=== PATIENT | male | born 1950 | race African-American/Black ===

== ENCOUNTER 2023-03-30 12:24 | Outpatient (REF) | payer MEDICAID, SELFPAY ==
[2023-03-30 13:20] LABS: MANUAL DIFF FLAG NO
[2023-03-30 13:27] LABS: Basophils Percent Auto 0.3 % (0-2); Eosinophils Absolute Auto 0.1 X10*3/uL (0.0-0.4); Eosinophils Percent Auto 0.6 % (0-4); Hematocrit 44.7 % (42.0-52.0); Hemoglobin 15.9 g/dl (14.0-18.0); Imm Gran Abs Auto 0.04 X10*3/uL (0.00-0.03); Imm Gran Pct Auto 0.4 % (0.0-0.4); Lymphocytes Absolute Auto 1.7 X10*3/uL (1.2-4.9); Lymphocytes Percent Auto 18.4 % (20-40); Mean Corpuscular HGB Conc 35.6 g/dl (31.0-36.0); Mean Corpuscular Hemoglobin 33.5 pg (27.0-33.0); Mean Corpuscular Volume 94.3 fL (80.0-98.0); Mean Platelet Volume 10.1 fL (9.4-12.4); Monocytes Absolute Auto 0.7 X10*3/uL (0.1-1.2); Monocytes Percent Auto 7.6 % (2-11); Neutrophils Absolute Auto 6.5 x10*3/uL (2.0-8.3); Neutrophils Percent Auto 72.7 % (45-73); Platelet Count 238 X10*3/uL (160-400); Red Blood Count 4.74 X10*6/uL (4.60-5.80); Red Cell Distribution Width 12.7 % (11.0-16.0)
[2023-03-30 14:17] LABS: Alanine Aminotransferase 8 U/L (0-40); Albumin Level 4.2 g/dL (3.5-5.0); Alkaline Phosphatase 67 U/L (39-117); Anion Gap 12 (12-20); Aspartate Amino Transferase 19 U/L (5-37); Bilirubin Total 1.4 mg/dL (0.0-1.0); Blood Urea Nitrogen 9 mg/dL (9-16); Calcium 9.9 mg/dL (8.4-10.2); Carbon Dioxide 32 mmol/L (22-29); Chloride 97 mmol/L (96-108); Estimated Glomerular Filt Rate > 60; Glucose Random 89 mg/dL (60-115); Potassium 3.3 mmol/L (3.3-5.1); Sodium 138 mmol/L (135-145); Total Protein 8.4 g/dL (6.5-8.0)
[2023-03-30 14:25] LABS: Estimated Average Glucose 100 mg/dL; Hemoglobin A1C 134.3202 umol/L; Hemoglobin A1c % 5.1 % (<6.0)
[2023-04-02 09:17] LABS: Absolute CD3 Count 1092 cells/uL (840-3060); Absolute CD4 Count 620 cells/uL (490-1740); Absolute CD8 Count 473 cells/uL (180-1170); Absolute Lymphocytes 1641 cells/uL (850-3900); CD4 CD8 Ratio 1.31 (0.86-5.00); Percent CD3 Cells 67 % (57-85); Percent CD4 Cells 38 % (30-61); Percent CD8 Cells 29 % (12-42)
[2023-04-03 14:04] LABS: HIV RNA PCR Qn Copies <20 DETECTED copies/mL (NOT DETECTED); HIV RNA PCR Qn Log Copies <1.30 DETECTED (NOT DETECTED)
[2023-04-07 06:13] LABS: VITAMIN D (1,25 OH) D3 56 pg/mL; Vit D (1,25-Dihydroxy) Total 56 pg/mL (18-72); Vitamin D (1,25 OH) D2 <8 pg/mL
== END 2023-03-30 12:25 | disposition home or self-care (01) ==
LOC: HO.HHCL 12:24
PROVIDERS: Visit Provider Family Medicine
DX: Z21 Asymptomatic human immunodeficiency virus [HIV] infection status (principal)
CPT/HCPCS: 36415; 80053; 82652; 83036; 85025; 86359; 86360; 87536

== ENCOUNTER 2023-06-07 08:59 | Outpatient (REF) | payer MEDICAID, SELFPAY ==
--- NOTE | ~2023-06-07 | XR_ITS ---
EXAMINATION: XR LUMBOSACRAL SPINE WITH OBLIQUES CLINICAL INFORMATION: ACUTE RIGHT SIDE LOWER BACK PAIN WITH RIGHT SIDED SCIATICA,NEW ONSET RIGHT LBP WITH RIGHT RADICULOPATHY COMPARISON: None available. TECHNIQUE: AP, both oblique, and lateral views of the lumbar spine. Lateral view of the lumbosacral junction. FINDINGS: Degenerative changes are present in the spine with disc space narrowing predominantly at L4-L5 with associated endplate sclerosis and osteophyte formation. There is mild narrowing seen as well at L1-L2. At other levels, there are endplate changes with osteophytes. No fractures or subluxations are seen. Facet joints are unremarkable. No fractures or subluxations. No bony destructive lesions. Incidental note made of vascular calcification XR/XR lumbar spine 4V min IMPRESSION: Degenerative changes most marked at L4-L5.
== END 2023-06-07 09:00 | disposition home or self-care (01) ==
LOC: HO.HHCX 08:59
PROVIDERS: Visit Provider Emergency Medicine
DX: M54.41 Lumbago with sciatica, right side (principal)
CPT/HCPCS: 72110

== ENCOUNTER 2023-06-12 10:07 | Outpatient (REF) | payer MEDICAID, SELFPAY | END 2023-06-12 10:08 | disposition home or self-care (01) | LOC: HO.HOSX 10:07 | PROVIDERS: Visit Provider Orthopaedic Surgery | DX: Z13.89 Encounter for screening for other disorder (principal) ==

== ENCOUNTER 2023-09-13 14:21 | Outpatient (REF) | payer MEDICAID, SELFPAY ==
[2023-09-13 16:00] LABS: MANUAL DIFF FLAG NO
[2023-09-13 16:15] LABS: Basophils Percent Auto 0.5 % (0-2); Eosinophils Percent Auto 0.3 % (0-4); Hematocrit 40.7 % (42.0-52.0); Hemoglobin 14.3 g/dl (14.0-18.0); Imm Gran Abs Auto 0.01 X10*3/uL (0.00-0.03); Imm Gran Pct Auto 0.2 % (0.0-0.4); Lymphocytes Absolute Auto 1.5 X10*3/uL (1.2-4.9); Lymphocytes Percent Auto 25.4 % (20-40); Mean Corpuscular HGB Conc 35.1 g/dl (31.0-36.0); Mean Corpuscular Hemoglobin 32.8 pg (27.0-33.0); Mean Corpuscular Volume 93.3 fL (80.0-98.0); Mean Platelet Volume 10.8 fL (9.4-12.4); Monocytes Absolute Auto 0.6 X10*3/uL (0.1-1.2); Monocytes Percent Auto 10.1 % (2-11); Neutrophils Absolute Auto 3.7 x10*3/uL (2.0-8.3); Neutrophils Percent Auto 63.5 % (45-73); Platelet Count 188 X10*3/uL (160-400); Red Blood Count 4.36 X10*6/uL (4.60-5.80); Red Cell Distribution Width 12.6 % (11.0-16.0); White Blood Count 5.8 X10*3/uL (4.8-10.8)
[2023-09-13 16:31] LABS: Alanine Aminotransferase 13 U/L (0-40); Albumin Level 4.2 g/dL (3.5-5.0); Alkaline Phosphatase 52 U/L (39-117); Anion Gap 15 (12-20); Aspartate Amino Transferase 21 U/L (5-37); Bilirubin Total 1.1 mg/dL (0.0-1.0); Blood Urea Nitrogen 31 mg/dL (9-16); Calcium 9.4 mg/dL (8.4-10.2); Carbon Dioxide 24 mmol/L (22-29); Chloride 99 mmol/L (96-108); Cholesterol 113 mg/dL (<200); Estimated Glomerular Filt Rate 44; Glucose Random 92 mg/dL (60-115); HDL Cholesterol 49 mg/dL (>40); LDL Cholesterol Calculated 54 mg/dL (<100); Potassium 3.6 mmol/L (3.3-5.1); Sodium 134 mmol/L (135-145); Triglycerides 52 mg/dL (<150)
[2023-09-13 16:45] LABS: Reflex LDLD? No
[2023-09-14 08:14] LABS: Syphilis Screen Nonreactive (Nonreactive)
[2023-09-14 14:19] LABS: Absolute CD3 Count 1225 cells/uL (840-3060); Absolute CD4 Count 729 cells/uL (490-1740); Absolute CD8 Count 487 cells/uL (180-1170); Absolute Lymphocytes 1598 cells/uL (850-3900); Percent CD3 Cells 77 % (57-85); Percent CD4 Cells 46 % (30-61); Percent CD8 Cells 30 % (12-42)
[2023-09-14 18:53] LABS: HIV RNA PCR Qn Copies 34 copies/mL (NOT DETECTED); HIV RNA PCR Qn Log Copies 1.53 (NOT DETECTED)
[2023-09-16 17:09] LABS: TS Negative Control Passed; TS Panel A 0; TS Panel B 0; TS Positive Control Passed; TSpotTB Negative (Negative)
[2023-09-18 16:14] LABS: Hepatitis C Genotype Not Detected
== END 2023-09-13 14:22 | disposition home or self-care (01) ==
LOC: HO.HHCL 14:21
PROVIDERS: Visit Provider Student in an Organized Health Care Education/Training Program
DX: B20 Human immunodeficiency virus [HIV] disease (principal)
CPT/HCPCS: 36415; 80053; 80061; 85025; 86359; 86360; 86481; 86780; 87536; 87902

== ENCOUNTER 2023-11-21 09:53 | Emergency (ER) | payer MEDICAID, SELFPAY ==
--- NOTE | ~2023-11-21 | XR_ITS ---
EXAMINATION: XR HUMERUS, LEFT CLINICAL INFORMATION: Left arm pain COMPARISON: None available. TECHNIQUE: AP and lateral views of the left humerus. FINDINGS: The bones are normal. No fracture. Imaged portions of the shoulder and elbow are unremarkable. XR/XR humerus LT IMPRESSION: Normal left humerus.
--- NOTE | ~2023-11-21 | XR_ITS ---
EXAMINATION: XR FEMUR, LEFT CLINICAL INFORMATION: Left leg pain COMPARISON: None available. TECHNIQUE: AP and lateral views of the left femur were obtained. FINDINGS: No acute fractures. Status post left knee total arthroplasty. No evidence of hardware complications. Joint spaces are well-maintained. Atherosclerotic calcifications seen within the arterial vessels. No joint effusion XR/XR femur LT 2V IMPRESSION: No acute osseous process
--- NOTE | ~2023-11-21 | XR_ITS ---
EXAMINATION: XR TIBIA AND FIBULA, LEFT CLINICAL INFORMATION: Left flank pain COMPARISON: None available. TECHNIQUE: AP and lateral views of the left tibia and fibula were obtained. FINDINGS: Status post left knee total arthroplasty. No evidence of hardware complications. No fracture. No osseous lesions. Soft tissues are unremarkable XR/XR tibia fibula LT 2V IMPRESSION: No acute process
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
--- NOTE | ~2023-11-21 | XR_ITS ---
EXAMINATION: XR FOREARM, LEFT CLINICAL INFORMATION: Left arm pain COMPARISON: None available. TECHNIQUE: AP and lateral views of the left forearm were obtained. FINDINGS: The bones and soft tissues are normal. No fracture. Imaged portions of the elbow and wrist are unremarkable. XR/XR forearm LT 2V IMPRESSION: Normal left forearm.
--- NOTE | ~2023-11-21 | CT_ITS ---
EXAMINATION: CT CHEST, ABDOMEN, AND PELVIS WITH CONTRAST CLINICAL INFORMATION: COMPARISON: None TECHNIQUE: Multidetector volumetric CT imaging of the chest, abdomen, and pelvis was obtained after the administration of 100 mL of Omnipaque 300 intravenous contrast without immediate adverse reactions. Axial MIP volume rendering provided. Sagittal and coronal reformatted images were obtained. This CT examination was performed using dose optimization techniques as appropriate, variously including the following: *Automated exposure control *Adjustment of mA and/or kV according to patient size (this includes techniques or standardized protocols for targeted exams where dose is matched to indication/reason for exam; i.e. extremities or head) *Use of iterative reconstruction technique DLP: 228.99 mGy-cm for chest and 464.69 mGy-cm for abdomen and pelvis. FINDINGS: LUNGS: The lungs are clear with no evidence of inflammation or nodules. MEDIASTINUM: The mediastinum appears unremarkable. CORONARY ARTERY CALCIFICATION: Not seen PLEURA: There is no pleural effusion. No pleural mass or thickening. AXILLA: No lymphadenopathy by size criteria. LIVER, GALLBLADDER, AND BILIARY TREE: The liver appears unremarkable in size, shape, and attenuation. No focal hepatic lesion or biliary ductal dilatation is appreciated. Unremarkable appearance of the gallbladder. PANCREAS: Unremarkable SPLEEN: Unremarkable ADRENAL GLANDS: Unremarkable KIDNEYS AND URETERS: Small cortical cysts seen through the left kidney and there is 2.4 x 2.9 cm low-attenuation mass in the lower pole of left kidney, unclear if it solid mass versus hemorrhagic cyst. Correlate with renal ultrasound. Right kidney is unremarkable except of tiny cortical cysts. BLADDER: Unremarkable GASTROINTESTINAL TRACT: There is small hiatal hernia. Bowel loops are normal appendix is unremarkable. There is no colitis or diverticulitis seen. Moderate amount of retained feces consistent with constipation. ABDOMINAL WALL: No significant hernia is appreciated. LYMPH NODES: No evidence of adenopathy by size criteria. VASCULAR: Unremarkable. PELVIC VISCERA: Unremarkable OSSEOUS STRUCTURES: There are degenerative changes in lower lumbar spine but no fractures identified. CT/CT abdomen pelvis w IV con IMPRESSION: 1. No evidence of abnormalities in the chest, abdomen or pelvis. 2. Left renal mass, correlate with ultrasound. 3. Small hiatal hernia. 4. Constipation. 5. Degenerative changes in lower lumbar spine.
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
[2023-11-21 10:05] VITALS: BP 139/81; PULSE 56; RESP 14; TEMP 36.7; O2SAT 99
[2023-11-21 10:11] VITALS: BP 128/82; PULSE 56; O2SAT 100
[2023-11-21 10:24] LABS: MANUAL DIFF FLAG NO
[2023-11-21 10:25] LABS: Basophils Percent Auto 0.4 % (0-2); Eosinophils Absolute Auto 0.1 X10*3/uL (0.0-0.4); Eosinophils Percent Auto 0.9 % (0-4); Hematocrit 39.1 % (42.0-52.0); Hemoglobin 13.4 g/dl (14.0-18.0); Imm Gran Abs Auto 0.02 X10*3/uL (0.00-0.03); Imm Gran Pct Auto 0.4 % (0.0-0.4); Lymphocytes Absolute Auto 1.3 X10*3/uL (1.2-4.9); Lymphocytes Percent Auto 23.8 % (20-40); Mean Corpuscular HGB Conc 34.3 g/dl (31.0-36.0); Mean Corpuscular Hemoglobin 32.6 pg (27.0-33.0); Mean Corpuscular Volume 95.1 fL (80.0-98.0); Mean Platelet Volume 9.3 fL (9.4-12.4); Monocytes Absolute Auto 0.6 X10*3/uL (0.1-1.2); Monocytes Percent Auto 9.8 % (2-11); Neutrophils Absolute Auto 3.7 x10*3/uL (2.0-8.3); Neutrophils Percent Auto 64.7 % (45-73); Platelet Count 211 X10*3/uL (160-400); Red Blood Count 4.11 X10*6/uL (4.60-5.80); Red Cell Distribution Width 13.2 % (11.0-16.0); White Blood Count 5.6 X10*3/uL (4.8-10.8)
[2023-11-21 10:27] LABS: Appearance Urine Clear; Color Urine Yellow; Glucose Urine UA Negative (Negative); Leukocyte Esterase Urine Negative (Negative); Nitrite Urine Negative (Negative); Specific Gravity - Urine 1.015 (1.005-1.025); Urine Blood Negative (Negative); Urine Ketones Negative (Negative); Urine Protein Negative (Neg-Trace)
[2023-11-21 10:41] LABS: Prothrombin Time 12.4 SEC (11.1-13.3)
[2023-11-21 10:44] LABS: Alanine Aminotransferase 11 U/L (0-40); Albumin Level 3.8 g/dL (3.5-5.0); Alkaline Phosphatase 53 U/L (39-117); Anion Gap 6 (12-20); Aspartate Amino Transferase 20 U/L (5-37); Bilirubin Total 0.5 mg/dL (0.0-1.0); Blood Urea Nitrogen 7 mg/dL (9-16); Calcium 8.9 mg/dL (8.4-10.2); Carbon Dioxide 30 mmol/L (22-29); Chloride 107 mmol/L (96-108); Estimated Glomerular Filt Rate > 60; Glucose Random 88 mg/dL (60-115); Magnesium 2.1 mg/dL (1.6-2.6); Potassium 4.4 mmol/L (3.3-5.1); Sodium 139 mmol/L (135-145); Total Protein 7.3 g/dL (6.5-8.0)
[2023-11-21 10:54] VITALS: BP 139/81; PULSE 56; RESP 14; TEMP 36.7; O2SAT 99; BMI 21.3
[2023-11-21] MEDS: Ketorolac Tromethamine 30 MG/ML VIAL IM (11:13)
[2023-11-21] MEDS: iohexoL 350 MG/ML 100 ML INFUS..BTL IV (11:34)
--- NOTE | 2023-11-21 11:51 | PC.NURSE ---
20G PIV placed R forearm, medicated per OCT - provider verbal requested toradol IV initially ordered IM. pt to CT scan. pending CT/XR results.
[2023-11-21 13:01] VITALS: BP 139/81; PULSE 56; RESP 14; TEMP 36.7; O2SAT 99
--- NOTE | 2023-11-21 13:03 | PC.NURSE ---
AMA paperwork reviewed and signed.
== END 2023-11-21 13:03 | disposition home or self-care (01) ==
PROVIDERS: Physician Assistant; Emergency Provider Emergency Medicine
DX: S89.92XA Unspecified injury of left lower leg, initial encounter (principal); S09.90XA Unspecified injury of head, initial encounter; S39.93XA Unspecified injury of pelvis, initial encounter; S49.92XA Unspecified injury of left shoulder and upper arm, initial encounter; R51.9 Headache, unspecified; M54.2 Cervicalgia; M54.6 Pain in thoracic spine; M79.602 Pain in left arm; V03.90XA Pedestrian on foot injured in collision with car, pick-up truck or van, unspecified whether traffic or nontraffic accident, initial encounter; Y93.9 Activity, unspecified; Y92.410 Unspecified street and highway as the place of occurrence of the external cause; Y99.8 Other external cause status; Z79.899 Other long term (current) drug therapy
CPT/HCPCS: 36415; 70450; 71260; 72125; 73060; 73090; 73552; 73590; 74177; 80053; 81003; 83735; 85025; 85610; 96372; 99284; J1885; Q9967

== ENCOUNTER 2023-12-03 11:50 | Outpatient (REF) | payer MEDICAID, SELFPAY ==
[2023-12-03 14:05] LABS: Alanine Aminotransferase 15 U/L (0-40); Albumin Level 4.3 g/dL (3.5-5.0); Alkaline Phosphatase 56 U/L (39-117); Anion Gap 10 (12-20); Aspartate Amino Transferase 24 U/L (5-37); Bilirubin Total 0.9 mg/dL (0.0-1.0); Blood Urea Nitrogen 19 mg/dL (9-16); Calcium 9.9 mg/dL (8.4-10.2); Carbon Dioxide 31 mmol/L (22-29); Chloride 100 mmol/L (96-108); Estimated Glomerular Filt Rate 58; Glucose Random 97 mg/dL (60-115); Potassium 3.9 mmol/L (3.3-5.1); Sodium 137 mmol/L (135-145); Total Protein 8.3 g/dL (6.5-8.0)
[2023-12-06 19:38] LABS: HCV Log PCR <1.18 NOT DETECTED Log IU/mL (NOT DETECTED); HepC Viral Load <15 NOT DETECTED IU/mL (NOT DETECTED)
== END 2023-12-03 11:51 | disposition home or self-care (01) ==
LOC: HO.HHCL 11:50
PROVIDERS: Visit Provider Student in an Organized Health Care Education/Training Program
DX: Z21 Asymptomatic human immunodeficiency virus [HIV] infection status (principal)
CPT/HCPCS: 36415; 80053; 87522

== ENCOUNTER 2024-02-26 10:25 | Outpatient (REF) | payer MEDICAID, SELFPAY ==
[2024-02-26 11:19] LABS: MANUAL DIFF FLAG NO
[2024-02-26 11:26] LABS: Basophils Percent Auto 0.4 % (0-2); Eosinophils Absolute Auto 0.1 X10*3/uL (0.0-0.4); Eosinophils Percent Auto 0.7 % (0-4); Hematocrit 44.7 % (42.0-52.0); Hemoglobin 15.4 g/dl (14.0-18.0); Imm Gran Abs Auto 0.02 X10*3/uL (0.00-0.03); Imm Gran Pct Auto 0.3 % (0.0-0.4); Lymphocytes Absolute Auto 1.3 X10*3/uL (1.2-4.9); Lymphocytes Percent Auto 17.9 % (20-40); Mean Corpuscular HGB Conc 34.5 g/dl (31.0-36.0); Mean Corpuscular Volume 95.9 fL (80.0-98.0); Mean Platelet Volume 10.5 fL (9.4-12.4); Monocytes Absolute Auto 0.6 X10*3/uL (0.1-1.2); Monocytes Percent Auto 8.4 % (2-11); Neutrophils Absolute Auto 5.1 x10*3/uL (2.0-8.3); Neutrophils Percent Auto 72.3 % (45-73); Platelet Count 189 X10*3/uL (160-400); Red Blood Count 4.66 X10*6/uL (4.60-5.80); Red Cell Distribution Width 13.2 % (11.0-16.0); White Blood Count 7.1 X10*3/uL (4.8-10.8)
[2024-02-26 12:12] LABS: Alanine Aminotransferase 12 U/L (0-40); Albumin Level 4.3 g/dL (3.5-5.0); Alkaline Phosphatase 56 U/L (39-117); Anion Gap 12 (12-20); Aspartate Amino Transferase 21 U/L (5-37); Bilirubin Total 1.2 mg/dL (0.0-1.0); Blood Urea Nitrogen 23 mg/dL (9-16); Calcium 9.9 mg/dL (8.4-10.2); Carbon Dioxide 29 mmol/L (22-29); Chloride 100 mmol/L (96-108); Estimated Glomerular Filt Rate 57; Glucose Random 75 mg/dL (60-115); Potassium 4.4 mmol/L (3.3-5.1); Sodium 137 mmol/L (135-145); Total Protein 8.1 g/dL (6.5-8.0)
[2024-02-26 13:42] LABS: CT PCR NOT DETECTED (Not Detect.); NG PCR NOT DETECTED (Not Detect.)
[2024-02-27 08:36] LABS: Hepatitis A Antibody IgG REACTIVE (Nonreactive); ~Hepatitis A Antibody IgG 9.43 S/CO (0.00-0.99)
[2024-02-27 08:39] LABS: HBS Num1 0.33 mIU/mL (0-7.99); HBc Num1 3.79 S/CO (0.00-0.79); HBsAGNum1 0.31 S/CO (0.00-0.99); Hepatitis B Surface Antigen Negative (Negative); ~Hepatitis B Surface Antibody NONREACTIVE (Nonreactive)
[2024-02-27 09:40] LABS: HBc Num2 4.01 S/CO; HBc Num3 3.76 S/CO; Hepatitis B Core Antibody Reactive (Nonreactive)
[2024-02-27 18:23] LABS: Toxoplasma IgG Antibody <7.20 IU/mL; Toxoplasma IgM Antibody <8.00 AU/mL
[2024-02-28 22:53] LABS: Hepatitis B Core Antibody IgM NON-REACTIVE (NON-REACTIVE)
[2024-02-29 17:23] LABS: Absolute CD3 Count 974 cells/uL (840-3060); Absolute CD4 Count 512 cells/uL (490-1740); Absolute CD8 Count 412 cells/uL (180-1170); Absolute Lymphocytes 1225 cells/uL (850-3900); CD4 CD8 Ratio 1.24 (0.86-5.00); Percent CD3 Cells 79 % (57-85); Percent CD4 Cells 42 % (30-61); Percent CD8 Cells 34 % (12-42)
[2024-02-29 18:23] LABS: HIV RNA PCR Qn Copies 30 copies/mL (NOT DETECTED); HIV RNA PCR Qn Log Copies 1.48 (NOT DETECTED)
[2024-03-02 22:09] LABS: Glucose-6-Phosphate Dehydrogen 15.4 U/g Hgb (7.0-20.5)
== END 2024-02-26 10:26 | disposition home or self-care (01) ==
LOC: HO.HHCL 10:25
PROVIDERS: Visit Provider Student in an Organized Health Care Education/Training Program
DX: Z21 Asymptomatic human immunodeficiency virus [HIV] infection status (principal)
CPT/HCPCS: 36415; 80053; 82955; 85025; 86359; 86360; 86704; 86705; 86706; 86708; 86777; 86778; 87340; 87491; 87536; 87591

== ENCOUNTER 2024-05-09 09:47 | Outpatient (REF) | payer MEDICAID, SELFPAY ==
--- NOTE | ~2024-05-09 | US_ITS ---
EXAMINATION: US RETROPERITONEAL LIMITED (RENAL ONLY) CLINICAL INFORMATION: Multiple left renal cysts seen on CT scan. COMPARISON: CT abdomen and pelvis 11/21/2023. TECHNIQUE: Real-time imaging of the kidneys. FINDINGS: Exam limited, partially obscured by bowel gas. RIGHT KIDNEY: 10.7 x 4.0 x 4.2 cm (SAG x AP x TRV). The kidney is normal in size, contour, and echogenicity. Renal cortical thickness is normal. No renal calculi or hydronephrosis. Septated cyst middle Pole right kidney 1.2 cm. Smaller cyst 5 mm. LEFT KIDNEY: 9.8 x 5.6 x 5.2 cm (SAG x AP x TRV). The kidney is normal in size, contour, and echogenicity. Renal cortical thickness is normal. No renal calculi or hydronephrosis. There are tiny renal cysts, also complex of cyst middle Pole 1.2 x 1.2 x 1.7 cm and lower pole 2.3 x 2.1 x 2.2 cm. Containing multiple septation and echogenic material. Somewhat complex. US/US renal BI IMPRESSION: 1. Exam limited, partially obscured by bowel gas. 2. There are bilateral renal cysts some of which are complex, including the one in the lower pole left kidney 2.3 cm, if patient is high-risk, this could be further investigated with dedicated MRI, if not performed follow-up ultrasound in 6 months advised. 3. No ultrasound evidence of renal obstruction or hydronephrosis. Electronically signed by: Gildardo Handy MD 06/22/2024 07:45 PM [facility]
== END 2024-05-09 09:48 | disposition home or self-care (01) ==
LOC: HO.US 09:47
PROVIDERS: Visit Provider Internal Medicine
DX: N28.1 Cyst of kidney, acquired (principal)
CPT/HCPCS: 76775

== ENCOUNTER 2024-07-07 09:50 | Outpatient (REF) | payer MEDICAID, SELFPAY ==
[2024-07-07 11:28] LABS: MANUAL DIFF FLAG NO
[2024-07-07 11:30] LABS: Basophils Percent Auto 0.5 % (0-2); Eosinophils Percent Auto 0.5 % (0-4); Hematocrit 39.8 % (42.0-52.0); Hemoglobin 14.1 g/dl (14.0-18.0); Imm Gran Abs Auto 0.02 X10*3/uL (0.00-0.03); Imm Gran Pct Auto 0.4 % (0.0-0.4); Lymphocytes Absolute Auto 1.1 X10*3/uL (1.2-4.9); Lymphocytes Percent Auto 20.3 % (20-40); Mean Corpuscular HGB Conc 35.4 g/dl (31.0-36.0); Mean Corpuscular Hemoglobin 33.4 pg (27.0-33.0); Mean Corpuscular Volume 94.3 fL (80.0-98.0); Monocytes Absolute Auto 0.5 X10*3/uL (0.1-1.2); Monocytes Percent Auto 9.6 % (2-11); Neutrophils Absolute Auto 3.8 x10*3/uL (2.0-8.3); Neutrophils Percent Auto 68.7 % (45-73); Platelet Count 206 X10*3/uL (160-400); Red Blood Count 4.22 X10*6/uL (4.60-5.80); Red Cell Distribution Width 12.9 % (11.0-16.0); White Blood Count 5.5 X10*3/uL (4.8-10.8)
[2024-07-07 11:37] LABS: Estimated Average Glucose 114 mg/dL; Hemoglobin A1C 133.9083 umol/L; Hemoglobin A1c % 5.6 % (<6.0); Total Hemoglobin (HGBA1C) 3590.6525 umol/L
[2024-07-07 11:56] LABS: Alanine Aminotransferase 11 U/L (0-40); Albumin Level 3.9 g/dL (3.5-5.0); Alkaline Phosphatase 52 U/L (39-117); Anion Gap 9 (12-20); Aspartate Amino Transferase 34 U/L (5-37); Bilirubin Total 0.7 mg/dL (0.0-1.0); Blood Urea Nitrogen 12 mg/dL (9-16); Calcium 9.2 mg/dL (8.4-10.2); Carbon Dioxide 30 mmol/L (22-29); Chloride 102 mmol/L (96-108); Estimated Glomerular Filt Rate 54; Glucose Random 94 mg/dL (60-115); Potassium 3.5 mmol/L (3.3-5.1); Sodium 137 mmol/L (135-145); Total Protein 7.4 g/dL (6.5-8.0)
[2024-07-08 08:53] LABS: Rubella IgG Antibody >33.00 Index; Rubeola IgG (Measles) >300.00 AU/mL
[2024-07-08 14:48] LABS: HIV RNA PCR Qn Copies 153 copies/mL (NOT DETECTED); HIV RNA PCR Qn Log Copies 2.18 (NOT DETECTED)
[2024-07-10 17:13] LABS: Absolute CD3 Count 861 cells/uL (840-3060); Absolute CD4 Count 516 cells/uL (490-1740); Absolute CD8 Count 336 cells/uL (180-1170); Absolute Lymphocytes 1032 cells/uL (850-3900); CD4 CD8 Ratio 1.54 (0.86-5.00); Percent CD3 Cells 83 % (57-85); Percent CD4 Cells 50 % (30-61); Percent CD8 Cells 33 % (12-42)
== END 2024-07-07 09:51 | disposition home or self-care (01) ==
LOC: HO.HHCL 09:50
PROVIDERS: Visit Provider Student in an Organized Health Care Education/Training Program
DX: Z21 Asymptomatic human immunodeficiency virus [HIV] infection status (principal)
CPT/HCPCS: 36415; 80053; 83036; 85025; 86359; 86360; 86735; 86762; 86765; 86787; 87536

== ENCOUNTER 2024-08-11 11:25 | Outpatient (REF) | payer MEDICAID, SELFPAY ==
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
== END 2024-08-11 11:26 | disposition home or self-care (01) ==
LOC: HO.HHCX 11:25
PROVIDERS: Visit Provider Emergency Medicine
DX: M54.50 Low back pain, unspecified (principal); S39.92XA Unspecified injury of lower back, initial encounter
CPT/HCPCS: 72100

== ENCOUNTER → 2024-08-11 11:25 | Outpatient (BNV) | payer MEDICAID, SELFPAY | PROVIDERS: Visit Provider Radiology Diagnostic Radiology | DX: M51.360 Other intervertebral disc degeneration, lumbar region with discogenic back pain only (principal) | CPT/HCPCS: 72100 ==

== ENCOUNTER 2024-08-18 11:10 | Outpatient (REF) | payer MEDICAID, SELFPAY ==
[2024-08-20 18:03] LABS: HIV RNA PCR Qn Copies 27 copies/mL (NOT DETECTED); HIV RNA PCR Qn Log Copies 1.43 (NOT DETECTED)
== END 2024-08-18 11:11 | disposition home or self-care (01) ==
LOC: HO.HHCL 11:10
PROVIDERS: Visit Provider Internal Medicine
DX: B20 Human immunodeficiency virus [HIV] disease (principal)
CPT/HCPCS: 36415; 87536

== ENCOUNTER 2025-02-16 12:24 | Outpatient (REF) | payer MEDICAID, SELFPAY ==
--- OUTSIDE RECORDS SUMMARY | 2025-02-16 13:19 | XMS_ITS | Patient Health Record ---
Author Organization [facility] Address [address] [place] [address] Care Team Providers Care Dye Machine Operator Name Role Phone HEIKE GALVEZ N.P. Primary Care Provider Shyam Lora [phone] Reason For Referral No Information Plan Of Treatment No Information Insurance Providers Payer Name Payer Address Payer Phone Subscriber Number Group Number Insured Name Patient Relationship to Insured Coverage Start Date Coverage End Date MEDICAID OF [facility] [address] [place] [id number] JACOB NIEVES Self - patient is the insured
[2025-02-16 13:52] LABS: MANUAL DIFF FLAG NO
[2025-02-16 14:12] LABS: Hematocrit 41.0 % (42.0-52.0); Hemoglobin 14.3 g/dl (14.0-18.0); Imm Gran Abs Auto 0.02 X10*3/uL (0.00-0.03); Imm Gran Pct Auto 0.3 % (0.0-0.4); Lymphocytes Absolute Auto 1.5 X10*3/uL (1.2-4.9); Mean Corpuscular HGB Conc 34.9 g/dl (31.0-36.0); Mean Corpuscular Hemoglobin 33.0 pg (27.0-33.0); Mean Corpuscular Volume 94.7 fL (80.0-98.0); NRBC Abs Auto 0.000 X10*3/uL (0.0-0.012); NRBC Pct Auto 0.0 /100WBC (0.0-0.2); Platelet Count 216 X10*3/uL (160-400); Red Blood Count 4.33 X10*6/uL (4.60-5.80); White Blood Count 6.7 X10*3/uL (4.8-10.8)
[2025-02-16 14:24] LABS: Alanine Aminotransferase 16 U/L (0-40); Albumin Level 4.3 g/dL (3.5-5.0); Alkaline Phosphatase 58 U/L (39-117); Anion Gap 10 (12-20); Aspartate Amino Transferase 28 U/L (5-37); Blood Urea Nitrogen 20 mg/dL (9-16); Calcium 9.0 mg/dL (8.4-10.2); Carbon Dioxide 28 mmol/L (22-29); Chloride 103 mmol/L (96-108); Estimated Glomerular Filt Rate 50; Potassium 3.4 mmol/L (3.3-5.1); Sodium 138 mmol/L (135-145); Total Protein 7.6 g/dL (6.5-8.0)
[2025-02-16 14:34] LABS: Anion Gap 10 (12-20); Blood Urea Nitrogen 20 mg/dL (9-16); Calcium 9.2 mg/dL (8.4-10.2); Carbon Dioxide 27 mmol/L (22-29); Chloride 104 mmol/L (96-108); Cholesterol 115 mg/dL (<200); Estimated Glomerular Filt Rate 49; HDL Cholesterol 49 mg/dL (>40); Potassium 3.4 mmol/L (3.3-5.1); Sodium 138 mmol/L (135-145); Triglycerides 93 mg/dL (<150)
[2025-02-16 14:37] LABS: Microalbum/Creatinine Ratio Ur 11.9 ug/mg cr (<30)
[2025-02-16 14:44] LABS: Reflex LDLD? No
[2025-02-17 08:24] LABS: HBsAGNum1 0.35 S/CO (0.00-0.99); Hepatitis B Surface Antigen Negative (Negative); ~HepC Num1 12.13 S/CO (0.00-0.79); ~Hepatitis C Antibody Reactive (Nonreactive)
[2025-02-17 15:49] LABS: HIV RNA PCR Qn Copies <20 DETECTED copies/mL (NOT DETECTED); HIV RNA PCR Qn Log Copies <1.30 DETECTED (NOT DETECTED)
[2025-02-19 06:53] LABS: TS Negative Control Passed; TS Panel A 0; TS Panel B 0; TS Positive Control Passed; TSpotTB Negative (Negative)
[2025-02-19 12:59] LABS: HCV Log PCR <1.18 NOT DETECTED Log IU/mL (NOT DETECTED); HepC Viral Load <15 NOT DETECTED IU/mL (NOT DETECTED)
[2025-02-19 17:13] LABS: Absolute CD3 Count 1264 cells/uL (840-3060); Absolute CD8 Count 522 cells/uL (180-1170); Percent CD3 Cells 79 % (57-85); Percent CD8 Cells 33 % (12-42)
== END 2025-02-16 12:25 | disposition home or self-care (01) ==
LOC: HO.HHCL 12:24
PROVIDERS: Internal Medicine; PCP Nurse Practitioner Primary Care; Visit Provider Student in an Organized Health Care Education/Training Program
DX: B20 Human immunodeficiency virus [HIV] disease (principal); I10 Essential (primary) hypertension
CPT/HCPCS: 36415; 80048; 80053; 80061; 82043; 82570; 85025; 86359; 86360; 86481; 86592; 86803; 87340; 87522; 87536

== ENCOUNTER 2025-04-27 | Outpatient (REF) | payer MEDICAID, SELFPAY | END 2025-04-27 00:01 | disposition home or self-care (01) | LOC: HO.LNP | PROVIDERS: Visit Provider Student in an Organized Health Care Education/Training Program | DX: Z21 Asymptomatic human immunodeficiency virus [HIV] infection status (principal) | CPT/HCPCS: 88112 ==